=== PATIENT | female | born 2000 | race Two or more races ===

== ENCOUNTER 2024-01-11 15:05 | Emergency (ER) | payer OTHER ==
[~2024-01-11] VITALS: Ht 152.4 cm; Wt 59.0 kg
[2024-01-11] MEDS ORDERED: FAMOTIDINE/PF 20 MG in 0.9 % SODIUM CHLORIDE 8 ML IV PUSH STA (16:10)
[2024-01-11] MEDS ORDERED: ONDANSETRON HCL 2 MG/ML VIAL IV ONE (16:15)
[2024-01-11] MEDS ORDERED: 0.9 % SODIUM CHLORIDE 1,000 ML IV SCH ×2 (16:15)
[2024-01-11] MEDS ORDERED: ACETAMINOPHEN 500 MG GEL..CAP PO ONE (16:15)
[2024-01-11 17:04] LABS: HEMATOCRIT 39.6 % (36.0-45.00); HEMOGLOBIN 13.4 g/dL (12.0-15.00); MEAN CELL VOLUME 83.6 fL (80.00-100.00); MEAN CORPUSCULAR HEMOGLOBIN 28.2 pg (27.00-32.0); MEAN CORPUSCULAR HGB CONC 33.7 g/dl (32.0-36.0); PLATELET COUNT 276 K/uL (150-450); RED BLOOD COUNT 4.73 M/uL (4.00-6.00); RED CELL DISTRIBUTION WIDTH 14.2 % (11.5-14.5)
[2024-01-11 17:45] LABS: ALBUMIN 3.8 gm/dL (3.4-5.0); BILIRUBIN TOTAL 0.84 mg/dL (0.3-1.2); CALCIUM 8.9 mg/dL (8.5-10.1); CREATININE SERUM 0.59 mg/dL (0.55-1.02); GFR 125.22; GLOBULINA 3.9 G/DL (2.4-3.5); POTASSIUM 3.46 mEq/L (3.5-5.1); TOTAL PROTEIN 7.7 gm/dL (6.4-8.2)
[2024-01-11] MEDS ORDERED: PEPCID AC20 MG PO (18:47)
[2024-01-11] MEDS ORDERED: ONDANSETRON ODT8 MG PO (18:47)
== END 2024-01-11 18:58 | disposition home or self-care (01) ==
LOC: ER 15:06
PROVIDERS: General Practice
DX: B34.9 Viral infection, unspecified (principal); R11.2 Nausea with vomiting, unspecified; R19.7 Diarrhea, unspecified; R11.10 Vomiting, unspecified; Z20.822 Contact with and (suspected) exposure to COVID-19